=== PATIENT | female | born 1930 | race Hispanic/Latino ===

== ENCOUNTER 2018-06-12 06:40 | Outpatient (CLI) | payer MEDICARE, OTHER ==
--- NOTE | 2018-06-13 08:36 | PET Report ---
PET SB TO MT SUBSEQUENT: HISTORY: Restaging of lung cancer. TECHNIQUE: 12.9 millicuries F-18 FDG was administered intravenously. Noncontrast CT images and PET images were obtained from the skull base to the proximal thighs. Fused images were reviewed on a workstation. The patient's blood glucose level measured 128. COMPARISON: No previous studies are available for comparison. FINDINGS: BRAIN: physiologic FDG uptake in the imaged brain. NECK: physiologic FDG uptake. MEDIASTINUM: physiologic FDG uptake. No mediastinal mass or adenopathy is detected. Moderate to severe aortic, coronary artery and tricuspid valve calcifications are noted. Small hiatal hernia. LUNGS: There is an irregular left upper lobe mass measuring up to 3.3 x 2.3 cm in axial plane with Max SUV measuring 5.0. There is also a focal airspace opacity in the mid right lower lobe measuring up to 2.7 x 2.0 cm in axial plane but this lesion is hypometabolic with Max SUV measuring 1.5. Calcified lymph nodes are noted at the right hilum and subcarinal chain consistent with chronic granulomatous disease. There are a few scattered calcified granulomas in the right lung is well. PLEURA/PERICARDIUM: physiologic FDG uptake. THORACIC LYMPH NODES: physiologic FDG uptake. HEPATOBILIARY: physiologic FDG uptake. Mean liver SUV measures 2.7. Cholelithiasis is noted. PANCREAS: physiologic FDG uptake. SPLEEN: physiologic FDG uptake. Numerous calcified granulomas are noted. ADRENAL GLANDS: physiologic FDG uptake. KIDNEYS/RENAL COLLECTING SYSTEMS: physiologic FDG uptake. BOWEL/MESENTERY: physiologic FDG uptake. PELVIC VISCERA: physiologic FDG uptake. ABDOMINAL/PELVIC LYMPH NODES: physiologic FDG uptake. MUSCULOSKELETAL: physiologic FDG uptake. Moderate to severe osteopenia is noted. No obvious fracture or bone lesion. IMPRESSION: 3.3 x 2.3 cm hypermetabolic left upper lobe lung mass with Max SUV measuring 5.0 which is suspicious for recurrent or residual lung cancer. No convincing metastatic lesions are identified. There is a second airspace opacity in the right lower lobe as described which is hypometabolic and is likely related to chronic granulomatous disease.
== END 2018-06-12 06:41 | disposition home or self-care (01) ==
LOC: PET 06:40
PROVIDERS: ATTEND Internal Medicine Hematology & Oncology
DX: C34.11 Malignant neoplasm of upper lobe, right bronchus or lung (principal); M85.88 Other specified disorders of bone density and structure, other site; K44.9 Diaphragmatic hernia without obstruction or gangrene; R73.09 Other abnormal glucose
CPT/HCPCS: 78815; 82962; A9552